=== PATIENT | female | born 1960 | race Caucasian/White ===

== ENCOUNTER 2017-06-02 09:58 | Emergency (ER) | payer BC ==
[~2017-06-02] VITALS: Ht 160 cm; Wt 65.9 kg
[2017-06-02 09:58] VITALS: BP 136/82
[~2017-06-02 09:58] MED LIST: ALPRAZOLAM0.5 MG PO; Ecotrin PO; LYRICA50 MG PO; MULTIVITAMIN1 EAC2 PO; NITROFURANTOIN100 MG PO; OMEPRAZOLE40 M1 PO; ONDANSETRON HCL4 MG PO; PANTOPRAZOLE SO40 MG PO; PROTONIX40 MG; THIAMINE HCL100 MG PO; VIT D; VITAMIN D400 UNIT PO; XANAX0.5 MG; XIFAXAN550 MG PO; cymbalta
== END 2017-06-02 11:59 | disposition left against medical advice (07) ==
LOC: EME → EDBD 09:58 → EME 09:58
DX: F10.10 Alcohol abuse, uncomplicated (principal); Z87.442 Personal history of urinary calculi
CPT/HCPCS: 80048; 85025; 99281; 99283; G0480

== ENCOUNTER 2017-06-05 15:35 | Inpatient (IN) | payer OTHER ==
[~2017-06-05] VITALS: Ht 160 cm; Wt 44.6 kg
[2017-06-05 18:55] LABS: ADD MIUA? NO; BILIRUBIN NEGATIVE; BLOOD NEGATIVE; COLOR YELLOW ((YELLOW)); GLUCOSE (STRIP) NEGATIVE; KETONES NEGATIVE; LEUKOCYTES NEGATIVE; NITRITE NEGATIVE; PROTEIN (STRIP) NEGATIVE; SPECIFIC GRAVITY 1.005 (1.000-1.030); UROBILINOGEN 0.2 MG/DL (0.2-1.0)
[2017-06-05 18:56] LABS: UCUL ADDED? YES
[2017-06-05 19:02] LABS: EOSINOPHIL (%) 1.7 % (0-5); EOSINOPHIL COUNT 0.1 K/uL (0-0.3); IMMATURE GRANULOCYTE (%) 0.4 % (0.0-0.7); INSTRUMENT ABS NEUTROPHIL CT 2.7 K/uL; LYMPHOCYTE COUNT 2.2 K/uL (1.0-2.8); MCH 30.8 PG (29.0-34.0); MCHC 34.2 G/DL (30.0-36.0); MEAN PLAT.VOLUME 9.9 uM^3 (9.5-12.4); MONOCYTE (%) 4.2 % (3-12); MONOCYTE COUNT 0.2 K/uL (0-0.8); NEUTROPHIL COUNT 2.7 K/uL (1.8-6.4); PLATELET COUNT 156 K/uL (156-360); RBC DIS.WIDTH-CV 12.3 % (11.8-14.6); RBC DIS.WIDTH-SD 39.9 % (39-53); RED BLOOD COUNT 4.78 M/uL (3.80-5.20); WHITE BLOOD COUNT 5.2 K/uL (4.1-10.2)
[2017-06-05 19:03] LABS: AMPHETAMINE NEGATIVE (500 ng/mL); BARBITURATES NEGATIVE (200 ng/mL); BENZODIAZEPINES NEGATIVE (150 ng/mL); COCAINE NEGATIVE (150 ng/mL); INTERNAL CONTROLS VALID? YES; METHADONE NEGATIVE (200 ng/mL); METHAMPHETAMINE NEGATIVE (500 ng/mL); OPIATES (MORPHINE) NEGATIVE (100 ng/mL); OXYCODONE NEGATIVE (100 ng/mL); PHENCYCLIDINE NEGATIVE (25 ng/mL); PROPOXYPHENE NEGATIVE (300 ng/mL); THC CANNABINOIDS NEGATIVE (50 ng/mL); TRICYCLIC ANTIDEPRESSANTS NEGATIVE (300 ng/mL)
[2017-06-05 19:13] LABS: CHLORIDE 104 mEq/L (99-109); POTASSIUM 3.9 mEq/L (3.7-5.4); SODIUM 146 mEq/L (136-147)
[2017-06-05 19:16] LABS: GLUCOSE 102 mg/dL (70-99)
[2017-06-05 19:17] LABS: ANION GAP 17 MEQ/L (2-14)
[2017-06-05 19:18] LABS: SERUM ETHYL ALCOHOL 257 mg/dL
[2017-06-05 19:19] LABS: GFR ESTIMATE (CALCULATED) > 59 mL/min/
[2017-06-05 19:20] LABS: ALKALINE PHOSPHATASE 104 IU/L (3-129)
[2017-06-05 19:21] LABS: UREA NITROGEN (BUN) 7 mg/dL (9-23)
[2017-06-05 19:23] LABS: SALICYLATE < 5.0 MG/DL (15-30)
[2017-06-06] MEDS ORDERED: GABAPENTIN300 MG PO (04:14)
[2017-06-06] MEDS ORDERED: TRAZODONE HCL50 MG PO (04:16)
[2017-06-06 04:31] VITALS: BP 149/83
[2017-06-06] MEDS ORDERED: MOTRIN400 MG PO (04:40)
[2017-06-06 07:56] VITALS: BP 133/74
[2017-06-06 15:35] VITALS: BP 151/76
[2017-06-06 19:30] VITALS: BP 119/60
[2017-06-07 07:15] VITALS: BP 107/66
[2017-06-07] MEDS ORDERED: NALTREXONE HCL50 MG PO (10:53)
== END 2017-06-07 12:29 | disposition home or self-care (01) | DRG 881 ==
LOC: EME 15:35 → 1WEST 06-06 02:34 → EDOF 06-06 02:34 → 1WEST 06-06 02:34 → ENRESERV 06-06 04:05 → 1WEST 06-06 04:11
PROVIDERS: Emergency Medicine
DX: F43.21 Adjustment disorder with depressed mood (principal); R45.851 Suicidal ideations; F10.24 Alcohol dependence with alcohol-induced mood disorder; F10.229 Alcohol dependence with intoxication, unspecified; Y90.8 Blood alcohol level of 240 mg/100 ml or more; F41.9 Anxiety disorder, unspecified; K21.9 Gastro-esophageal reflux disease without esophagitis; G43.909 Migraine, unspecified, not intractable, without status migrainosus; Z87.442 Personal history of urinary calculi
CPT/HCPCS: 80053; 81003; 85025; 87086; 90837; G0480